=== PATIENT | female | born 1955 | race Caucasian/White ===

== ENCOUNTER → 2017-10-15 | Outpatient (CLI) | payer OTHER ==
[2015-08-02 15:14] VITALS: BMI 36.1
[~2017-10-15] MED LIST: ACET500T68 PO; ALBUTEROL INHALER; ASPI-663 PO; ASPI1TAB35 PO; ATOR10TA24 PO; CALC-852 PO; CALC168T17 PO; CINN1CAP PO; DOCU100C49 PO; ESTR42.5 VG; FISH400C3 PO; GLUC1TAB66 PO; IBUP200C71 PO; IBUP800T37 PO; KET10 PO; MULT-1085 PO; OXYC-373 PO; PSYL660P5 PO; [UNRECOGNIZED DRUG - CODE] PO; [UNRECOGNIZED DRUG - CODE] PO
--- NOTE | 2017-10-15 10:30 | RADIOLOGY IMAGING REPORT ---
FACILITY: [facility] PATIENT NAME: Radha Wells : 1955 MR: [id number] V: [id number] EXAM DATE: ORDERING PHYSICIAN: ERIS FOSTER TECHNOLOGIST: Location: [facility] Patient: Radha Wells : 1955 Visit/Account:[id number] Date of Sevice: 10/15/2017 DEXA Scan Clinical history: Postmenopausal. Comparison: DEXA scan from 10/31/2014. LUMBAR SPINE: The bone mineral density (BMD) measured from L1-L4 correlates with a Z-score of 0.2 and a T-score of 0 which is Normal as defined by the World Health Organization. The corresponding risk of fracture in the lumbar spine is Not increased compared with a young adult reference population. This value has decrease by 0.9 % since the prior study. More than 5% change is considered significant. HIP: Bone mineral density (BMD) measured in the LEFT total hip region correlates with a Z-score -0.1 and a T-score of by 0.3 which is normal as defined by the World Health Organization. The corresponding risk of fracture in the hip is Not i ncreased compared to a young adult reference population. This value has increased by 0.1 % since the prior study. More than 5% change is considered significant. T score left femoral neck -0.2 Bone mineral density (BMD) measured in the Femoral Neck region measures 1.005 g/cm?. IMPRESSION: 1. Lumbar spine: Normal. There has been 0.9% decrease in the bone mineral density since the previou s exam. 2. Left Total Hip: Normal. There has been 0.1% increase in the bone mineral density since the previ ous exam. 3. Femoral Neck: Bone Mineral Density is 1.005 g/cm? The next DEXA scan of this patient should include the following sites: L1-L4 and the left hip. FRAX? WHO Fracture Risk Assessment Tool link: <http://www.shef.ac.uk/FRAX/tool.jsp?locationValue=9> PLEASE NOTE: 1) The World Health Organization defines low BMD as follows: T-score Normal > -1 Osteopenia < -1 and > -2.5 Osteoporosis < -2.5 without fractures Established osteoporosis < -2.5 with fractures 2) In general, you may wish to consider: Diagnosis Treatment Follow-up DEXA Normal BMD Prevention 2-3 years Osteopenia Prevention/therapy 1-2 years Osteoporosis Therapy Yearly 3) Fracture risk estimated from the T-score is more accurate for vertebral fractures (often spontane ous) than for hip fractures. Report Dictated By: Christal Villalobos MD at 10/15/2017 10:25 AM Report E-Signed By: Christal Villalobos MD at 10/15/2017 10:26 AM WSN:[email or web address]
--- NOTE | 2017-10-16 09:34 | RADIOLOGY IMAGING REPORT ---
FACILITY: [facility] PATIENT NAME: PRABHAKAR PICKETT : [id number] MR: [id number] V: [id number] EXAM DATE: [id number] ORDERING PHYSICIAN: ERIS FOSTER TECHNOLOGIST: Jessica Kim PROCEDURE:BILATERAL DIGITAL SCREENING MAMMOGRAM WITH CAD ASSISTED INTERPRETATION & 3D TOMOSYNTHESIS COMPARISON:Prior mammograms 11/12/15, 10/31/14. INDICATIONS:SCREENING FINDINGS: A small amount of fibroglandular tissue is seen throughout the breasts. The parenchymal pattern has remained stable allowing for difference in mammographic technique & patient positioning. There is no evidence of malignant appearing mass, malignant appearing calcifications or other secondary sign of malignancy in either breast. DIAGNOSTIC CATEGORY 1--NEGATIVE. RECOMMENDATIONS: ROUTINE MAMMOGRAM AND CLINICAL EVALUATION. IMPRESSION: BIRADS 1: Negative. No significant abnormality is seen. Dictated by: Christal Villalobos M.D. on 10/15/2017 at 14:23 Transcribed by: KINJAL on 10/15/2017 at 14:45 Approved by: Christal Villalobos M.D. on 10/16/2017 at 9:34 [facility]
== END ==
LOC: MAMO 00:59
PROVIDERS: ATTEND Physician Assistant
DX: Z12.31 Encounter for screening mammogram for malignant neoplasm of breast (principal); N95.8 Other specified menopausal and perimenopausal disorders
CPT/HCPCS: 77063; 77067; 77080

== ENCOUNTER → 2018-10-14 | Outpatient (CLI) | payer OTHER ==
[2015-08-02 15:14] VITALS: BMI 36.1
[~2018-10-14] MED LIST changes: +IBUP-136 PO; -IBUP200C71 PO
--- NOTE | 2018-10-15 08:21 | RADIOLOGY IMAGING REPORT ---
FACILITY: [facility] PATIENT NAME: PRABHAKAR PICKETT : [id number] MR: [id number] V: [id number] EXAM DATE: [id number] ORDERING PHYSICIAN: NIKOLAY SHAIKH TECHNOLOGIST: India Riggins PROCEDURE: BILATERAL DIGITAL SCREENING MAMMOGRAM WITH CAD ASSISTED INTERPRETATION & 3D TOMOSYNTHESIS. REASON FOR STUDY: Screening. FAMILY HISTORY OF BREAST CANCER: Paternal Aunt. BREAST PROCEDURES/TREATMENTS: None. COMPARISON: 10/15/17, 11/12/15, 10/31/14. VIEWS OBTAINED: 2D & 3D full field CC & MLO. BREAST DENSITY: There are scattered areas of fibroglandular density throughout the breasts. MAMMOGRAM FINDINGS: The parenchymal pattern has remained stable allowing for difference in mammographic technique & patient positioning. IMPRESSION: BIRADS 1: Negative. DIAGNOSTIC CATEGORY 1--NEGATIVE. RECOMMENDATIONS: ROUTINE MAMMOGRAM AND CLINICAL EVALUATION. Dictated by: Christal Villalobos M.D. on 10/14/2018 at 15:09 Transcribed by: KINJAL on 10/14/2018 at 15:58 Approved by: Christal Villalobos M.D. on 10/15/2018 at 8:18 [facility]
== END ==
LOC: RAD 00:23
PROVIDERS: ATTEND Family Medicine
DX: Z12.31 Encounter for screening mammogram for malignant neoplasm of breast (principal)
CPT/HCPCS: 77063; 77067